=== PATIENT | female | born 1985 | race Caucasian/White ===

== ENCOUNTER 2017-08-11 07:21 | Day surgery (SDC) | payer OTHER ==
[~2017-08-11] VITALS: Ht 162.6 cm; Wt 129.9 kg
[~2017-08-11 07:21] MED LIST: ACET325 PO; ACID REFLUX MED; AMOX500 PO; ARIP10 PO; BCP'S; Buspirone HCl30 MG PO; CALCAVITD PO; CALCIUM/VIT D; CALGLU500; CETI5 PO; CHLO25B; CHOL10002 PO; CYCL10; CYCL10 PO; Cymbalta60 MG; DIPATR PO; DIPH25 PO; DIPH50; DOCU100; DOCU100 PO; ERGO400; ERGO400 PO; ESTNORT; FERR325; FERR325 PO; FEXPSEER PO; FLUO10; FLUO20; FLUO20 PO; Flonase 0.05% N16 GM; GABA300 PO; HALO5 PO; HYDACE25S PR; HYDACE5 PO; HYDPAM25 PO; HYDPAM50 PO; IBUP600 PO; IBUP800; IBUP800 PO; Imitrex50 MG; K-Tab10 MEQ; LEVFLO500 PO; LEVOXYL; LEVSOD100; LEVSOD112; LEVSOD112 PO; LEVSOD125; LEVSOD125 PO; LEVSOD150 PO; LEVSOD25; MEDR150I; MEDR150I IM; MELA3; MIRT15; MULVITA; MULVITMIND; MULVITMIND PO; NALT50; NALT50 PO; NAPR500 PO; OMEPRAZOLE MAGN20 MG PO; OXYACE5T PO; PARO10; PARO25; POLY17UD PO; PRAV20 PO; PRAZ2 PO; PRAZ5 PO; PROC5 PO; PROM25 PO; QUET100; QUET100 PO; QUET200; QUET25; QUET25 PO; QUET300; RANI150; RANI150 PO; RXCYCL10 PO; RXDIPHSY PO; RXHYDACE PO; RXOXYACE PO; SERT100 PO; SYNTHROID0.2 MG PO; Seroquel50 MG PO; Singulair10 MG; TRAZ100; TRAZ150T57; TRAZ50 PO; VENL150ER PO; VENL37.5ER PO; ZOLP10 PO; ZOLP5 PO; Zofran Odt4 MG SL; [UNRECOGNIZED DRUG - OTHER]; [UNRECOGNIZED DRUG - REMARK]
[2018-03-27] MEDS ORDERED: ZOLP10 PO (17:04)
[2018-03-27] MEDS ORDERED: VIIBRYD40 MG PO (17:04)
[2018-04-08] MEDS ORDERED: CLON.5 PO (20:58)
== END 2017-08-11 09:40 | disposition home or self-care (01) ==
LOC: ORSCSDS 07:21
PROVIDERS: Surgery
PROC: 0DJ08ZZ Inspection of Upper Intestinal Tract, Via Natural or Artificial Opening Endoscopic (ICD-10-PCS; principal; 2017-08-11 08:45)
DX: K21.9 Gastro-esophageal reflux disease without esophagitis (principal); R13.10 Dysphagia, unspecified; F32.9 Major depressive disorder, single episode, unspecified; E03.9 Hypothyroidism, unspecified; D64.9 Anemia, unspecified; E66.01 Morbid (severe) obesity due to excess calories; Z68.42 Body mass index [BMI] 45.0-49.9, adult; Z79.899 Other long term (current) drug therapy
CPT/HCPCS: J2250; J7120

== ENCOUNTER → 2017-08-31 | Outpatient (CLI) | payer OTHER ==
[~2017-08-31] MED LIST changes: +CLON.5 PO; +VIIBRYD40 MG PO
[2017-09-03 12:28] LABS: HPV Genotype 16 Not Detected (NOTDET); HPV Genotype 18 Not Detected (NOTDET)
[2017-09-05 13:01] LABS: HPV High Risk Other Not Detected (NOTDET)
== END ==
LOC: LAB 13:52
PROVIDERS: Registered Nurse Community Health
DX: Z12.4 Encounter for screening for malignant neoplasm of cervix (principal); R87.619 Unspecified abnormal cytological findings in specimens from cervix uteri
CPT/HCPCS: 87624; G0123

== ENCOUNTER → 2017-10-22 | Outpatient (CLI) | payer OTHER ==
[~2017-10-22] MED LIST changes: +Buspirone HCl30 MG; -Buspirone HCl30 MG PO; -CLON.5 PO; -VIIBRYD40 MG PO
== END | disposition home or self-care (01) ==
LOC: LAB EV 11:01 → LAB SHORT 11:01
DX: J02.9 Acute pharyngitis, unspecified (principal)
CPT/HCPCS: 87070

== ENCOUNTER → 2018-04-01 | Outpatient (CLI) | payer OTHER ==
[~2018-04-01] MED LIST changes: -Buspirone HCl30 MG; +Buspirone HCl30 MG PO; +VIIBRYD40 MG PO
== END | disposition home or self-care (01) ==
LOC: LAB EV 15:38 → LAB SHORT 15:38
DX: N39.0 Urinary tract infection, site not specified (principal)
CPT/HCPCS: 87086

== ENCOUNTER 2018-04-04 03:29 | Emergency (ER) | payer OTHER ==
[~2018-04-04] VITALS: Ht 162.6 cm; Wt 97.5 kg
[2018-04-04 04:43] LABS: BASOPHILS ABSOLUTE AUTO 0.02 K/mm3 (0.00-0.23); BASOPHILS PERCENT AUTO 0 % (0-2); EOSINOPHILS ABSOLUTE AUTO 0.13 K/mm3 (0.00-0.68); EOSINOPHILS PERCENT AUTO 2 % (0-6); Hemoglobin 12.5 g/dL (11.5-16.0); IMMATURE GRAN ABSOLUTE AUTO 0.01 K/mm3 (0.00-0.10); IMMATURE GRAN PERCENT AUTO 0 % (0-1); LYMPHOCYTES ABSOLUTE AUTO 1.76 K/mm3 (0.84-5.20); LYMPHOCYTES PERCENT AUTO 27 % (21-46); MONOCYTES PERCENT AUTO 9 % (4-13); Mean Corpuscular HGB 29.3 pg (26.0-34.0); Mean Corpuscular HGB Conc 32.9 g/dL (31.5-36.5); Mean Corpuscular Volume 89 fL (80-100); Mean Platelet Volume 10.8 fL (9.1-12.4); NEUTROPHILS ABSOLUTE AUTO 4.04 K/mm3 (1.96-9.15); NEUTROPHILS PERCENT AUTO 62 % (41-73); Platelet Count 159 K/mm3 (150-400); RDW Coefficient Variation 13.9 % (11.7-14.2); RDW Standard Deviation 44.7 fL (35.1-46.3); Red Blood Cell Count 4.26 M/mm3 (3.80-5.20); White Blood Cell Count 6.56 K/mm3 (4.00-11.30)
[2018-04-04 05:09] LABS: Alanine Aminotransfer (ALT/SGP 14 U/L (12-78); Albumin, Blood 2.6 g/dL (3.4-5.0); Albumin/Globulin Ratio 0.7 (0.8-1.8); Alk Phos 94 U/L (50-136); Anion Gap 9 mmol/L (6-16); Aspartate Aminotrans (AST/SGOT 13 U/L (12-37); Bilirubin, Total 0.5 mg/dL (0.1-1.0); Blood Urea Nitrogen 4 mg/dL (8-24); Bun/Creatinine Ratio 5.7 (12.0-20.0); CO2, Blood 26 mmol/L (21-32); Calcium, Blood 7.9 mg/dL (8.5-10.1); Chloride, Blood 110 mmol/L (98-108); Creatinine, Blood 0.71 mg/dL (0.40-1.00); Ethanol (Alcohol), Blood, Med <3 mg/dL; Globulin, Blood 3.8 g/dL (2.2-4.0); Glomerular Filtration Rate >60 (60-); Glucose, Blood 111 mg/dL (70-99); Sodium, Blood 145 mmol/L (136-145); Total Protein, Blood 6.4 g/dL (6.4-8.2)
[2018-04-04 05:15] LABS: Salicylate <1.7 mg/dL (2.8-20.0); Thyroid Stimulating Hormone 0.011 uIU/mL (0.360-4.800)
[2018-04-04 05:33] LABS: Acetaminophen, Random <2.0 ug/mL (10.0-30.0)
== END 2018-04-04 06:21 | disposition home or self-care (01) ==
LOC: ER 03:29
PROVIDERS: Emergency Medicine
DX: F32.9 Major depressive disorder, single episode, unspecified (principal); R44.0 Auditory hallucinations; F17.200 Nicotine dependence, unspecified, uncomplicated; Z88.1 Allergy status to other antibiotic agents; Z88.0 Allergy status to penicillin; Z91.048 Other nonmedicinal substance allergy status; Z91.018 Allergy to other foods; Z88.5 Allergy status to narcotic agent; Z88.8 Allergy status to other drugs, medicaments and biological substances; Z79.899 Other long term (current) drug therapy
CPT/HCPCS: 36415; 80053; 84443; 85025; 99284; G0480; Q3014

== ENCOUNTER → 2018-10-26 | Outpatient (CLI) | payer OTHER ==
[~2018-10-26] MED LIST changes: +CLON.5 PO
== END | disposition home or self-care (01) ==
LOC: LAB SHORT 10:49 → LAB EV 10:49
DX: M79.674 Pain in right toe(s) (principal)
CPT/HCPCS: 84550

== ENCOUNTER 2019-07-26 19:18 | Emergency (ER) | payer OTHER ==
[~2019-07-26] VITALS: Ht 162.6 cm; Wt 113.4 kg
[2019-07-26 20:01] LABS: BASOPHILS ABSOLUTE AUTO 0.06 K/mm3 (0.00-0.23); BASOPHILS PERCENT AUTO 1 % (0-2); EOSINOPHILS PERCENT AUTO 2 % (0-6); Hematocrit 42.3 % (33.0-51.0); Hemoglobin 13.6 g/dL (11.5-16.0); IMMATURE GRAN ABSOLUTE AUTO 0.02 K/mm3 (0.00-0.10); IMMATURE GRAN PERCENT AUTO 0 % (0-1); LYMPHOCYTES ABSOLUTE AUTO 2.62 K/mm3 (0.84-5.20); LYMPHOCYTES PERCENT AUTO 27 % (21-46); MONOCYTES ABSOLUTE AUTO 0.72 K/mm3 (0.16-1.47); MONOCYTES PERCENT AUTO 7 % (4-13); Mean Corpuscular HGB 29.1 pg (26.0-34.0); Mean Corpuscular HGB Conc 32.2 g/dL (31.5-36.5); Mean Corpuscular Volume 90 fL (80-100); Mean Platelet Volume 10.1 fL (9.1-12.4); NEUTROPHILS ABSOLUTE AUTO 6.13 K/mm3 (1.96-9.15); NEUTROPHILS PERCENT AUTO 63 % (41-73); Platelet Count 189 K/mm3 (150-400); RDW Coefficient Variation 13.8 % (11.7-14.2); RDW Standard Deviation 45.6 fL (35.1-46.3); Red Blood Cell Count 4.68 M/mm3 (3.80-5.20); White Blood Cell Count 9.75 K/mm3 (4.00-11.30)
[2019-07-26 20:29] LABS: Anion Gap 6 mmol/L (6-16); Blood Urea Nitrogen 6 mg/dL (8-24); Bun/Creatinine Ratio 8.2 (12.0-20.0); CO2, Blood 28 mmol/L (21-32); Calcium, Blood 8.6 mg/dL (8.5-10.1); Chloride, Blood 108 mmol/L (98-108); Creatinine, Blood 0.73 mg/dL (0.40-1.00); Glomerular Filtration Rate >60 (60-); Glucose, Blood 105 mg/dL (70-99); Potassium, Blood 3.2 mmol/L (3.5-5.5); Sodium, Blood 142 mmol/L (136-145)
== END 2019-07-26 21:19 | disposition home or self-care (01) ==
LOC: ER 19:18
PROVIDERS: Emergency Medicine
DX: T48.202A Poisoning by unspecified drugs acting on muscles, intentional self-harm, initial encounter (principal); F31.9 Bipolar disorder, unspecified; Z88.1 Allergy status to other antibiotic agents; Z88.8 Allergy status to other drugs, medicaments and biological substances; Z88.0 Allergy status to penicillin; Z88.5 Allergy status to narcotic agent; Z79.899 Other long term (current) drug therapy; K21.9 Gastro-esophageal reflux disease without esophagitis; F43.10 Post-traumatic stress disorder, unspecified; Z87.891 Personal history of nicotine dependence
CPT/HCPCS: 80048; 85025; 99283

== ENCOUNTER → 2019-10-19 | Outpatient (CLI) | payer OTHER | END | disposition home or self-care (01) | LOC: LAB 17:19 → LAB SHORT 17:19 | DX: J02.9 Acute pharyngitis, unspecified (principal) | CPT/HCPCS: 87081 ==

== ENCOUNTER 2020-01-04 14:53 | Emergency (ER) | payer OTHER ==
[~2020-01-04] VITALS: Ht 162.6 cm; Wt 133.8 kg
[2020-01-04 15:40] LABS: Source, Urine Clean Catch
[2020-01-04 15:52] LABS: BASOPHILS ABSOLUTE AUTO 0.08 K/mm3 (0.00-0.23); BASOPHILS PERCENT AUTO 1 % (0-2); EOSINOPHILS ABSOLUTE AUTO 0.22 K/mm3 (0.00-0.68); EOSINOPHILS PERCENT AUTO 2 % (0-6); Hematocrit 46.3 % (33.0-51.0); Hemoglobin 14.4 g/dL (11.5-16.0); IMMATURE GRAN ABSOLUTE AUTO 0.03 K/mm3 (0.00-0.10); IMMATURE GRAN PERCENT AUTO 0 % (0-1); LYMPHOCYTES ABSOLUTE AUTO 2.74 K/mm3 (0.84-5.20); LYMPHOCYTES PERCENT AUTO 25 % (21-46); MONOCYTES ABSOLUTE AUTO 0.71 K/mm3 (0.16-1.47); MONOCYTES PERCENT AUTO 7 % (4-13); Mean Corpuscular HGB Conc 31.1 g/dL (31.5-36.5); Mean Corpuscular Volume 87 fL (80-100); Mean Platelet Volume 10.8 fL (9.1-12.4); NEUTROPHILS ABSOLUTE AUTO 7.04 K/mm3 (1.96-9.15); NEUTROPHILS PERCENT AUTO 65 % (41-73); Platelet Count 209 K/mm3 (150-400); RDW Coefficient Variation 14.7 % (11.7-14.2); RDW Standard Deviation 47.3 fL (35.1-46.3); Red Blood Cell Count 5.34 M/mm3 (3.80-5.20); White Blood Cell Count 10.82 K/mm3 (4.00-11.30)
[2020-01-04 15:54] LABS: Appearance, Urine Clear (Clear); Color, Urine Yellow (P-Yellow)
[2020-01-04 15:55] LABS: Bilirubin, Urine Neg (Neg); Blood, Urine 1+ (Neg); Glucose Qualitative, Urine Neg (Neg); Ketones, Urine Neg (Neg); Leukocyte Esterase, Urine 1+ (Neg); Nitrite, Urine Neg (Neg); Protein, Urine Neg (Neg); Urobilinogen, Urine NORM (Normal)
[2020-01-04 16:02] LABS: Bacteria Mod /hpf; Red Blood Cells, Urine 0-2 /hpf (0-2); Squamous Epithelial Cells Few /hpf (Few)
[2020-01-04 16:04] LABS: Alanine Aminotransfer (ALT/SGP 21 U/L (12-78); Albumin, Blood 3.1 g/dL (3.4-5.0); Albumin/Globulin Ratio 0.8 (0.8-1.8); Alk Phos 120 U/L (50-136); Anion Gap 4 mmol/L (6-16); Aspartate Aminotrans (AST/SGOT 16 U/L (12-37); Bilirubin, Total 0.3 mg/dL (0.1-1.0); Blood Urea Nitrogen 8 mg/dL (8-24); Bun/Creatinine Ratio 10.1 (12.0-20.0); CO2, Blood 29 mmol/L (21-32); Calcium, Blood 8.2 mg/dL (8.5-10.1); Chloride, Blood 107 mmol/L (98-108); Ethanol (Alcohol), Blood, Med <3 mg/dL; Glomerular Filtration Rate >60 (60-); Glucose, Blood 107 mg/dL (70-99); Potassium, Blood 3.4 mmol/L (3.5-5.5); Salicylate 3.1 mg/dL (2.8-20.0); Sodium, Blood 140 mmol/L (136-145); Total Protein, Blood 7.1 g/dL (6.4-8.2)
[2020-01-04 16:11] LABS: Acetaminophen, Random <2.0 ug/mL (10.0-30.0)
[2020-01-04 16:15] LABS: U Amphetamine Screen Not Detected; U Barbituate Screen Not Detected; U Benzodiazapine Screen DETECTED; U Buprenorphine Screen Not Detected; U Cannabinoids Screen Not Detected; U Cocaine Screen Not Detected; U Methadone Screen Not Detected; U Methamphetamine Screen Not Detected; U Opiates Screen Not Detected; U Oxycodone Screen Not Detected; U Phencyclidine Screen Not Detected; U Propoxyphene Screen Not Detected
== END 2020-01-04 16:26 | disposition home or self-care (01) ==
LOC: ER 14:53
PROVIDERS: Physician Assistant
DX: F32.9 Major depressive disorder, single episode, unspecified (principal); K21.9 Gastro-esophageal reflux disease without esophagitis; F43.10 Post-traumatic stress disorder, unspecified; F20.9 Schizophrenia, unspecified; F17.200 Nicotine dependence, unspecified, uncomplicated; Z88.0 Allergy status to penicillin; Z88.5 Allergy status to narcotic agent; Z88.1 Allergy status to other antibiotic agents; Z88.8 Allergy status to other drugs, medicaments and biological substances; Z79.899 Other long term (current) drug therapy
CPT/HCPCS: 36415; 80053; 81001; 81025; 85025; 87086; 99285; G0480

== ENCOUNTER 2020-02-02 06:23 | Emergency (ER) | payer OTHER ==
[~2020-02-02] VITALS: Ht 162.6 cm; Wt 133.8 kg
[2020-02-02 06:57] LABS: Source, Urine Clean Catch
[2020-02-02] MEDS ORDERED: MONT4 (06:59)
[2020-02-02] MEDS ORDERED: ZIPRASIDONE HCL60 M1 PO (07:00)
[2020-02-02] MEDS ORDERED: OMEPRAZOLE DR 20 MG (07:00)
[2020-02-02 07:01] LABS: Bilirubin, Urine Neg (Neg); Blood, Urine Neg (Neg); Glucose Qualitative, Urine Neg (Neg); Ketones, Urine Neg (Neg); Leukocyte Esterase, Urine Neg (Neg); Nitrite, Urine Neg (Neg); Protein, Urine Neg (Neg); Specific Gravity, Urine 1.005 (1.003-1.022); Urobilinogen, Urine NORM (Normal)
[2020-02-02] MEDS ORDERED: PARO10 (07:01)
[2020-02-02] MEDS ORDERED: VITAMIN D325 MC3 (07:01)
[2020-02-02 07:10] LABS: Appearance, Urine Clear (Clear); Color, Urine Pale Yellow (P-Yellow)
[2020-02-02 07:11] LABS: BASOPHILS ABSOLUTE AUTO 0.05 K/mm3 (0.00-0.23); BASOPHILS PERCENT AUTO 1 % (0-2); EOSINOPHILS ABSOLUTE AUTO 0.16 K/mm3 (0.00-0.68); EOSINOPHILS PERCENT AUTO 2 % (0-6); Hematocrit 47.1 % (33.0-51.0); Hemoglobin 14.4 g/dL (11.5-16.0); IMMATURE GRAN ABSOLUTE AUTO 0.03 K/mm3 (0.00-0.10); IMMATURE GRAN PERCENT AUTO 0 % (0-1); LYMPHOCYTES ABSOLUTE AUTO 2.27 K/mm3 (0.84-5.20); LYMPHOCYTES PERCENT AUTO 25 % (21-46); MONOCYTES ABSOLUTE AUTO 0.55 K/mm3 (0.16-1.47); MONOCYTES PERCENT AUTO 6 % (4-13); Mean Corpuscular HGB Conc 30.6 g/dL (31.5-36.5); Mean Corpuscular Volume 88 fL (80-100); Mean Platelet Volume 10.9 fL (9.1-12.4); NEUTROPHILS ABSOLUTE AUTO 5.97 K/mm3 (1.96-9.15); NEUTROPHILS PERCENT AUTO 66 % (41-73); Platelet Count 159 K/mm3 (150-400); RDW Coefficient Variation 14.8 % (11.7-14.2); RDW Standard Deviation 47.7 fL (35.1-46.3); Red Blood Cell Count 5.34 M/mm3 (3.80-5.20); White Blood Cell Count 9.03 K/mm3 (4.00-11.30)
[2020-02-02 07:30] LABS: Alanine Aminotransfer (ALT/SGP 14 U/L (12-78); Albumin, Blood 3.1 g/dL (3.4-5.0); Albumin/Globulin Ratio 0.8 (0.8-1.8); Alk Phos 129 U/L (50-136); Anion Gap 8 mmol/L (6-16); Aspartate Aminotrans (AST/SGOT 8 U/L (12-37); Bilirubin, Total 0.4 mg/dL (0.1-1.0); Blood Urea Nitrogen 6 mg/dL (8-24); Bun/Creatinine Ratio 8.2 (12.0-20.0); CO2, Blood 23 mmol/L (21-32); Calcium, Blood 8.3 mg/dL (8.5-10.1); Chloride, Blood 106 mmol/L (98-108); Creatinine, Blood 0.73 mg/dL (0.40-1.00); Glomerular Filtration Rate >60 (60-); Glucose, Blood 98 mg/dL (70-99); Potassium, Blood 3.7 mmol/L (3.5-5.5); Sodium, Blood 137 mmol/L (136-145); Total Protein, Blood 7.1 g/dL (6.4-8.2)
== END 2020-02-02 08:32 | disposition home or self-care (01) ==
LOC: ER 06:23
PROVIDERS: Emergency Medicine
DX: M79.89 Other specified soft tissue disorders (principal); R11.0 Nausea; F31.9 Bipolar disorder, unspecified; K21.9 Gastro-esophageal reflux disease without esophagitis; F43.10 Post-traumatic stress disorder, unspecified; F41.9 Anxiety disorder, unspecified; F20.9 Schizophrenia, unspecified; J44.9 Chronic obstructive pulmonary disease, unspecified; Z88.0 Allergy status to penicillin; Z88.1 Allergy status to other antibiotic agents; Z88.5 Allergy status to narcotic agent; Z88.8 Allergy status to other drugs, medicaments and biological substances; Z79.899 Other long term (current) drug therapy; Z87.891 Personal history of nicotine dependence
CPT/HCPCS: 36415; 80053; 81003; 83690; 85025; 99284

== ENCOUNTER → 2020-06-06 | Outpatient (CLI) | payer OTHER ==
[~2020-06-06] MED LIST changes: +MONT4; +OMEPRAZOLE DR 20 MG; +VITAMIN D325 MC3; +ZIPRASIDONE HCL60 M1 PO
[2020-06-08 13:37] LABS: CORONAVIRUS (COVID19) CSH-NRL Negative (Negative)
== END | disposition home or self-care (01) ==
LOC: LAB 12:36 → LAB SHORT 12:36
PROVIDERS: Physician Assistant Surgical
DX: J22 Unspecified acute lower respiratory infection (principal); Z20.828 Contact with and (suspected) exposure to other viral communicable diseases
CPT/HCPCS: U0003

== ENCOUNTER → 2021-05-01 | Outpatient (CLI) | payer OTHER ==
[2021-05-01 13:52] LABS: Appearance, Urine Hazy (Clear); Bilirubin, Urine Neg (Neg); Blood, Urine 5+ (Neg); Color, Urine Yellow (P-Yellow); Glucose Qualitative, Urine Neg (Neg); Ketones, Urine Neg (Neg); Leukocyte Esterase, Urine 3+ (Neg); Nitrite, Urine Neg (Neg); Protein, Urine 3+ (Neg); Urobilinogen, Urine NORM (Normal)
[2021-05-01 14:37] LABS: Bacteria Many /hpf; Red Blood Cells, Urine 25-50 /hpf (0-2); Squamous Epithelial Cells Few /hpf (Few); White Blood Cells, Urine 50-100 /hpf (0-5)
== END | disposition home or self-care (01) ==
LOC: LAB 11:00 → LAB SHORT 11:00
PROVIDERS: Nurse Practitioner Family
DX: R30.0 Dysuria (principal)
CPT/HCPCS: 81001; 87077; 87086; 87186

== ENCOUNTER → 2021-12-13 | Outpatient (CLI) | payer OTHER | END | disposition home or self-care (01) | LOC: LAB SHORT 11:46 → LAB 11:46 | DX: N39.0 Urinary tract infection, site not specified (principal) | CPT/HCPCS: 87086 ==

== ENCOUNTER → 2022-05-21 | Outpatient (CLI) | payer OTHER ==
[2022-05-22 16:08] LABS: HPV 16 Negative (Negative); HPV 18 Negative (Negative); HPV OTHER HR TYPES Negative (Negative)
== END ==
LOC: RAD SHORT 12:46 → LAB 12:46 → RAD SHORT 12:47 → MOI RAD 12:47
PROVIDERS: Registered Nurse Community Health
DX: Z12.4 Encounter for screening for malignant neoplasm of cervix (principal); B37.2 Candidiasis of skin and nail; Z01.419 Encounter for gynecological examination (general) (routine) without abnormal findings
CPT/HCPCS: 83036; 87624; G0123

== ENCOUNTER 2023-02-27 10:50 | Inpatient (IN) | payer OTHER ==
[~2023-02-27] VITALS: Ht 162.6 cm; Wt 121.9 kg
[2023-02-27 11:47] LABS: BASOPHILS ABSOLUTE AUTO 0.04 K/mm3 (0.00-0.23); BASOPHILS PERCENT AUTO 0 % (0-2); EOSINOPHILS ABSOLUTE AUTO 0.33 K/mm3 (0.00-0.68); EOSINOPHILS PERCENT AUTO 3 % (0-6); Hematocrit 38.6 % (33.0-51.0); Hemoglobin 12.1 g/dL (11.5-16.0); IMMATURE GRAN ABSOLUTE AUTO 0.06 K/mm3 (0.00-0.10); IMMATURE GRAN PERCENT AUTO 1 % (0-1); LYMPHOCYTES PERCENT AUTO 12 % (21-46); MONOCYTES ABSOLUTE AUTO 0.43 K/mm3 (0.16-1.47); MONOCYTES PERCENT AUTO 4 % (4-13); Mean Corpuscular HGB 29.3 pg (26.0-34.0); Mean Corpuscular HGB Conc 31.3 g/dL (31.5-36.5); Mean Corpuscular Volume 94 fL (80-100); Mean Platelet Volume 10.1 fL (9.1-12.4); NEUTROPHILS PERCENT AUTO 80 % (41-73); Platelet Count 210 K/mm3 (150-400); RDW Coefficient Variation 15.8 % (11.7-14.2); RDW Standard Deviation 53.9 fL (35.1-46.3); Red Blood Cell Count 4.13 M/mm3 (3.80-5.20); White Blood Cell Count 11.26 K/mm3 (4.00-11.30)
[2023-02-27 12:00] LABS: Albumin, Blood 2.4 g/dL (3.4-5.0); Albumin/Globulin Ratio 0.6 (0.8-1.8); Bilirubin, Total 0.2 mg/dL (0.1-1.0); Bun/Creatinine Ratio 8.2 (12.0-20.0); Calcium, Blood 7.6 mg/dL (8.5-10.1); Creatinine, Blood 0.61 mg/dL (0.40-1.00); Globulin, Blood 4.3 g/dL (2.2-4.0); Magnesium, Blood 1.7 mg/dL (1.6-2.4); Potassium, Blood 3.2 mmol/L (3.5-5.5); Total Protein, Blood 6.7 g/dL (6.4-8.2)
[2023-02-27] MEDS ORDERED: MELATONIN 5 MG1 EACH PO ×2 (14:55)
[2023-02-27] MEDS ORDERED: Ventolin/Proventil INH ×2 (14:56)
[2023-02-27] MEDS ORDERED: CELE200 PO ×2 (14:57)
[2023-02-27] MEDS ORDERED: Synthroid/Levothroid PO ×2 (14:59)
[2023-02-27] MEDS ORDERED: ESTARYLLA PO ×2 (15:00)
[2023-02-27] MEDS ORDERED: OLANZAPINE20 M1 PO ×2 (15:01)
[2023-02-27] MEDS ORDERED: OMEP20ER PO ×2 (15:02)
[2023-02-27] MEDS ORDERED: PARO20 PO ×2 (15:03)
[2023-02-27] MEDS ORDERED: SEROQUEL XR50 MG PO ×2 (15:04)
[2023-02-27] MEDS ORDERED: VITAMIN D PO ×2 (15:06)
[2023-02-27 15:37] LABS: Influenza A, PCR NEGATIVE (NEGATIVE); Influenza B, PCR NEGATIVE (NEGATIVE); Resp Syncytial Virus, PCR NEGATIVE (NEGATIVE); SARS-Cov-2 (COVID-19) PCR, MMC NEGATIVE (NEGATIVE)
[2023-02-27 15:51] VITALS: BP 146/84
--- NOTE | 2023-02-27 19:31 | NUR ---
ADMISSION NOTE: PATIENT ARRIVED IN ROOM AT AROUND 1545 FROM ER FOR DX OF ACUTE ASTHMA EXACERBATION. PATIENT A&OX4. PLEASANT AND COOPERATIVE c CARE. ON 2L OF O2 VIA [place] c SPO2 OF 91-97%. NON PRODUCTIVE COUGH. LUNGS COARSE AND TIGHT T/O TO AUSCULTATION. MEDRIC AND 2 RN SKIN ASSESSMENT DONE. NOTED SKIN EXCORIATION TO L UNDER BREAST, PANNUS AND GROIN AREA. PATIENT AMBUL[place] [facility] [place] SBA AND FWW. EATING AND DRINKING WELL WITHOUT ANY DIFFICULTIES. RECEIVED SCHEDULED MEDS PER EMAR. VITAL SIGNS REVIEWED. PIV TO L HAND SALINE LOCKED. BED ALARM ON FOR SAFETY. CALL LIGHT IN REACH. PATIENT EDUCATED ON NON SMOKING POLICY, RISK OF INJURY, AND IGNITION SOURCES WHEN O2 IS IN USE. PATIENT DENIES SMOKING AND STATED UNDERSTANDING.
[2023-02-27 20:36] VITALS: BP 155/88
--- NOTE | 2023-02-28 05:14 | NUR ---
SUMMARY- NO ACUTE EVENTS THIS SHIFT. PT AAOX4 AND X1 ASSIST TO THE BSC. PAIN WELL CONTROLLED W/PAIN MEDS. PT UP TO THE BSC JUST ABOUT EVERY 1 HR TO URINATE THIS SHIFT. PT DENIES ANY BURNING OR ITCHING IN JENNIFER AREA. PT STATES IT IS "NORMAL" FOR HER TO URINATE EVERY HOUR AT HOME.
[2023-02-28 05:17] LABS: Hematocrit 38.2 % (33.0-51.0); Hemoglobin 11.9 g/dL (11.5-16.0); Mean Corpuscular HGB 29.3 pg (26.0-34.0); Mean Corpuscular HGB Conc 31.2 g/dL (31.5-36.5); Mean Corpuscular Volume 94 fL (80-100); Mean Platelet Volume 9.6 fL (9.1-12.4); Platelet Count 210 K/mm3 (150-400); RDW Coefficient Variation 15.4 % (11.7-14.2); RDW Standard Deviation 53.9 fL (35.1-46.3); Red Blood Cell Count 4.06 M/mm3 (3.80-5.20); White Blood Cell Count 10.64 K/mm3 (4.00-11.30)
[2023-02-28 05:18] VITALS: BP 156/89
[2023-02-28 06:05] LABS: Bun/Creatinine Ratio 6.3 (12.0-20.0); Calcium, Blood 8.2 mg/dL (8.5-10.1); Creatinine, Blood 0.63 mg/dL (0.40-1.00); Potassium, Blood 3.2 mmol/L (3.5-5.5)
[2023-02-28 07:46] VITALS: BP 152/89
[2023-02-28 16:00] VITALS: BP 151/73
--- NOTE | 2023-02-28 18:36 | NUR ---
SHIFT SUMMARY: NO NEW ACUTE CHANGES IN PATIENT CONDITION THIS SHIFT. PATIENT A&OX4. PLEASANT AND COOPERATIVE c CARE AND USES CALL LIGHT APPRORPIATELY. AT BEGINNING OF SHIFT PATIENT WAS ON 2L OF O2 VIA [place] c SPO2 RANGES 92-94%. AT AROUND 1000 O2 TITRATED TO 1L VIA [place] c SPO2 RANGES 90-93% T/O SHIFT. ENCOURAGE PT TO DO BREATHING EXERCISE AND PROVIDED c PICKLE DEVICE WHEN AWAKE. PATIENT HAS BEEN USING IT T/O SHIFT. RECEIVED OT DOSE OF 20 MG IV LASIX AND 60 MEQ OF K PO. LUNGS STILL COARSE AND WHEEZY T/O TO AUSCULATTION. PATIENT IS CONTINENCE OF URINE AND USES BS c SBA AND FWW. EATING AND DRINKING WELL. PAIN TO R HIP WELL CONTROLLED c PAIN MEDS PER EMAR AND REPOSITIONING. RECEIVED SCHEDULED MEDS PER EMAR. VITAL SIGNS REVIEWED. BED ALARM ON FOR SAFETY. CALL LIGHT IN REACH. PATIENT EDUCATED ON NON SMOKING POLICY, RISK OF INJURY, AND IGNITION SOURCES WHEN O2 IS IN USE. PATIENT DENIES SMOKING AND VERBALIZED UNDERSTANDING.
[2023-02-28 19:57] VITALS: BP 153/92
[2023-03-01 03:27] VITALS: BP 158/88
[2023-03-01 05:12] LABS: Bun/Creatinine Ratio 12.9 (12.0-20.0); Calcium, Blood 8.4 mg/dL (8.5-10.1); Creatinine, Blood 0.7 mg/dL (0.40-1.00); Magnesium, Blood 1.8 mg/dL (1.6-2.4); Potassium, Blood 3.7 mmol/L (3.5-5.5)
--- NOTE | 2023-03-01 05:34 | NUR ---
SUMMARY- NO ACUTE EVENTS OR CHANGES OVERNIGHT. PT IS ON 2 L O2.
[2023-03-01 07:55] VITALS: BP 140/94
[2023-03-01 10:07] VITALS: BP 129/99
--- NOTE | 2023-03-01 16:12 | NUR ---
SHIFT SUMMARY: NO NEW ACUTE CHANGES IN PATIENT CONDITION THIS SHIFT. ON 1L OF O2 VIA [place] c SPO2 RANGES 94-95%. HOME O2 EVAL WAS DONE TODAY, PER RT c AMBULATION PATIENT NEEDED 2L OF O2 TO GO HOME. THIS RN CONCERN c PATIENT SAFETY AT HOME D/T HEAVY CIGARETTE CONSUMPTION. PER PATIENT SHE SMOKES 1 PACK TO 1 1/2 PACK OF CIGARETTES A DAY. PATIENT IS MILD DEVELOPMENTAL DELAY, HX OF SCHIZOPPHRINIA, BIPOLAR DISORDER, AND BORDERLINE PERSONALITY DISORDER. 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 THIS RN EDUCATED THE PATIENT REGARDING HOME O2 USE, AND SHE COULD NOT SMOKE CIGARETTE. PATIENT VERBALIZED UNDERSTANDING, AND STATED "I WILL TRY MY BEST TO QUIT." OFFERED NICOTINE PATCH, BUT PATIENT DECLINED. PATIENT RECEIVED SCHEDULED MEDS PER EMAR. PAIN TO R KNEE WELL MANAGE c PAIN MEDS PER EMAR AND REPOSITIONING. VITAL SIGNS REVIEWED. BED ALARM ON FOR SAFETY. CALL LIGHT IN REACH. PATIENT EDUCATED ON NON SMOKING POLICY, RISK OF INJURY, IGNITION SOURCES WHEN O2 IS IN USE. PATIENT DENIES SMOKING AND VERBALIZED UNDERSTANDING.
[2023-03-01 17:37] VITALS: BP 138/88
[2023-03-01 21:50] VITALS: BP 160/88
--- NOTE | 2023-03-02 05:35 | NUR ---
SUMMARY: PT A/OX3-4 AND IS PLEASANT AND COOPERATIVE W/CARE. SHE HAS MILD DEVELOPMENTAL DELAY BUT SEEMS AWARE OF LIMITATIONS AND SPECIFIES NEEDS. SHE'S UP TO BSC INDEPENDENTLY W/FWW AND REQ'S SBA FOR DISTANCE. PT VOIDS OFTEN D/T URINARY URGENCY. SHE REMAINS ON 1L O2 AND REQ'S 2L W/AMBULATION PER HOME O2 EVAL. STAFF PROVIDED FURTHER EDUCATION RE: INABILITY TO SMOKE WHILE USING O2. SHE EXPRESSED UNDERSTANDING SAYING "I'M NOT GONNA SMOKE ANYMORE" BUT SEE PREVIOUS RN'S SUMMARY FOR MORE DETAILED CONCERNS. SPUTUM COLLECTION PENDING D/T CONFIGURATION MANAGEMENT MANAGER COUGH. SHE RECEIVED TYLENOL FOR TOLERABLE RELIEF OF R.HIP PAIN FROM FALL PRIOR TO ADMIT. NO ACUTE CHANGES, VSS/AFEBRILE. POSSIBLE D/C THIS AM. WCTM AND REPORT TO DAY RN.
[2023-03-02 08:15] VITALS: BP 163/103
[2023-03-02 15:27] VITALS: BP 165/93
--- NOTE | 2023-03-02 18:04 | NUR ---
PTK UP SOME TODAY. DOES REQUEST FOOD MANY TIMES DURING DAY. DID DISCUSS GETTING HER SODA DRINKS CUT BACK WAS DRINGING SO MUCH SODA SO FAST SHE THREW UP. STATES DOES SAME WITH SNACK FOOD. DISCUSSED HAVING HER SLOW DOWN. PLACE LIMITS LIKE 1-2 IN AM AND 1-2 IN PM. THEN DRINK WATER. DID MEDICATE FOR PAIN FOR LEG TODAY X1. DISCUSSED HER NOT SMOKING. SHE STATES PATCH MAKES HER SKIN RED, SO JUST GOINIG TO QUIT. EXPLAINED DANGER OF SMOKING AND O2. [place], EXPLOSIONS. SHE FEELS STOPPING SMOKING MIGHT BE BEST OPTION. NO OTHER CONCERNS NOTED. BED IN LOW POSITION, CALL LITE IN REACH, CALLS APPROP
[2023-03-03 05:35] VITALS: BP 168/107
[2023-03-03 05:36] LABS: Base Excess Venous 12.6 mmol/L; Bicarbonate Venous 35.1 mmol/L (24.0-30.0); PCO2 Venous 43.1 mmHg (38-42); pH Blood Venous 7.52 (7.34-7.37)
--- NOTE | 2023-03-03 06:11 | NUR ---
SUMMARY: PT A/OX3-4, IS PLEASANT AND COOPERATIVE W/CARE AND HAS MILD DEVELOPMENTAL DELAY BUT SPECIFIES NEEDS. SHE USES BSC INDEPENDENTLY W/FWW AND CONT'S TO HAVE URINARY URGENCY. SHE REMAINS ON 1L O2 W/SPO2 WNL AND HOME O2 RECCOMMENDS 2L W/AMBULATION. STAFF FURTHER REITTERRATED SMOKING RISK WHILE ON O2 AND NICORETTE GUM AVAILABLE PRN. SPUTUM COLLECTION STILL PENDING D/T DENTAL NURSE COUGH. TYLENOL RECIEVED FOR TOLERABLE RELIEF OF BILAT HIP PAIN. BP ELEVATED THIS AM BUT PT ANXIOUS R/T PAIN. NO ACUTE CHANGES, VSS/AFEBRILE. POSSIBLE D/C TODAY. WCTM AND REPORT TO DAY RN.
[2023-03-03] MEDS ORDERED: ALBU90OI INH ×2 (13:20)
[2023-03-03] MEDS ORDERED: IPRAT-ALBUT 0.5-3 ML INH ×2 (13:21)
[2023-03-03] MEDS ORDERED: EUTHYROX175 MCG PO ×2 (13:21)
[2023-03-03] MEDS ORDERED: VITAMIN D5000 UNIT PO ×2 (13:22)
[2023-03-03] MEDS ORDERED: NICO2 PO ×2 (13:22)
[2023-03-03] MEDS ORDERED: PRED20 PO ×2 (13:23)
--- NOTE | 2023-03-03 16:35 | NUR ---
PT DISCHARGED HOME. DC INSTRUCTIONS AND EDUCATION MATERIAL EXPLAINED TO PT. NO NEW QUESTIONS OR CONCERNS. [facility] DELIVERED PORTABLE OXYGEN TO PT WITH INSTRUCTIONS ON USE. PT EDUCATED ON DANGERS OF SMOKING AROUND OXYGEN. PERSCRIPTIONS FAXED TO REQUESTED PHARMACY. PERSONAL BELONGINGS IN LOCKED DRAWER AND LOCKED CLOSET RETURNED TO PT, INCLUDING HOME CONTROL MEDICATIONS. PT HELPED TO GATHER BELONGINGS. PT TAKEN BY WHEELCHAIR TO WAITING TAXI VEHICLE.
[2023-03-04] MEDS ORDERED: ALBU2.5V5 NEB (09:37)
== END 2023-03-03 15:40 | disposition home or self-care (01) | DRG 189 ==
LOC: ER 10:50 → MEDS 10:51 → ENPENDDIS 03-03 13:51 → MEDS 03-03 15:40
PROVIDERS: Internal Medicine; Student in an Organized Health Care Education/Training Program; ADMIT Internal Medicine
DX: J96.01 Acute respiratory failure with hypoxia (principal); J44.1 Chronic obstructive pulmonary disease with (acute) exacerbation; Z68.42 Body mass index [BMI] 45.0-49.9, adult; F32.A Depression, unspecified; F43.10 Post-traumatic stress disorder, unspecified; K21.9 Gastro-esophageal reflux disease without esophagitis; Z20.822 Contact with and (suspected) exposure to COVID-19; F41.9 Anxiety disorder, unspecified; E66.9 Obesity, unspecified; F20.9 Schizophrenia, unspecified; G89.29 Other chronic pain; M54.9 Dorsalgia, unspecified; E78.00 Pure hypercholesterolemia, unspecified; G47.00 Insomnia, unspecified; B37.2 Candidiasis of skin and nail; E87.6 Hypokalemia; F79 Unspecified intellectual disabilities; M25.551 Pain in right hip; E03.9 Hypothyroidism, unspecified; R79.89 Other specified abnormal findings of blood chemistry; F17.210 Nicotine dependence, cigarettes, uncomplicated; W18.39XA Other fall on same level, initial encounter; Z88.1 Allergy status to other antibiotic agents; Z88.0 Allergy status to penicillin; Z91.09 Other allergy status, other than to drugs and biological substances; Z91.018 Allergy to other foods; Z88.5 Allergy status to narcotic agent; Z88.8 Allergy status to other drugs, medicaments and biological substances; Z79.899 Other long term (current) drug therapy; Z79.890 Hormone replacement therapy; Z90.49 Acquired absence of other specified parts of digestive tract; Z98.890 Other specified postprocedural states; Z87.730 Personal history of (corrected) cleft lip and palate; Z87.74 Personal history of (corrected) congenital malformations of heart and circulatory system; Z90.11 Acquired absence of right breast and nipple; Z90.722 Acquired absence of ovaries, bilateral; Z99.81 Dependence on supplemental oxygen; Z71.6 Tobacco abuse counseling
CPT/HCPCS: 0241U; 36415; 71045; 80048; 80053; 82803; 83735; 83880; 84145; 85025; 85027; 93005; 93010; 94640; 94644; 94664; 94760; 94761; 96365; 96367; 96372; 96375; 96376; 97110; 97116; 97162; 99285-25; 99407; A9270; G0378; J0456; J1650; J1885; J1940; J2930; J3010; J3475; J7030; J7050; J7512

== ENCOUNTER 2023-03-04 08:10 | Emergency (ER) | payer OTHER ==
[~2023-03-04] VITALS: Ht 162.6 cm; Wt 121.6 kg
[~2023-03-04 08:10] MED LIST changes: +ALBU90OI INH; +CELE200 PO; +ESTARYLLA PO; +EUTHYROX175 MCG PO; +IPRAT-ALBUT 0.5-3 ML INH; +MELATONIN 5 MG1 EACH PO; +NICO2 PO; +OLANZAPINE20 M1 PO; +OMEP20ER PO; +PARO20 PO; +PRED20 PO; +SEROQUEL XR50 MG PO; +Synthroid/Levothroid PO; +VITAMIN D PO; +VITAMIN D5000 UNIT PO; +Ventolin/Proventil INH
[2023-03-04] MEDS ORDERED: ALBU2.5V5 NEB (09:37)
[2023-03-04 11:21] LABS: Source, Urine Straight Cath
[2023-03-04 11:30] LABS: Appearance, Urine Clear (Clear); Bilirubin, Urine Neg (Neg); Blood, Urine Neg (Neg); Color, Urine Yellow (P-Yellow); Glucose Qualitative, Urine Neg (Neg); Ketones, Urine Neg (Neg); Leukocyte Esterase, Urine Neg (Neg); Nitrite, Urine Neg (Neg); Protein, Urine Neg (Neg); Specific Gravity, Urine 1.015 (1.003-1.022); Urobilinogen, Urine NORM (Normal)
[2023-03-04 14:00] VITALS: BP 147/75
== END 2023-03-04 14:45 | disposition home or self-care (01) ==
LOC: ER 08:10
PROVIDERS: Emergency Medicine
DX: J45.909 Unspecified asthma, uncomplicated (principal); M79.10 Myalgia, unspecified site; F17.210 Nicotine dependence, cigarettes, uncomplicated; Z88.0 Allergy status to penicillin; Z88.5 Allergy status to narcotic agent; Z88.1 Allergy status to other antibiotic agents; Z79.899 Other long term (current) drug therapy; Z79.52 Long term (current) use of systemic steroids
CPT/HCPCS: 51701; 81003; 94640; 94664; 99284-25; A9270

== ENCOUNTER 2023-03-05 02:02 | Emergency (ER) | payer OTHER ==
[~2023-03-05] VITALS: Ht 162.6 cm; Wt 120.2 kg
[~2023-03-05 02:02] MED LIST changes: +ALBU2.5V5 NEB
[2023-03-05 02:36] LABS: BASOPHILS ABSOLUTE AUTO 0.04 K/mm3 (0.00-0.23); BASOPHILS PERCENT AUTO 0 % (0-2); EOSINOPHILS ABSOLUTE AUTO 0.14 K/mm3 (0.00-0.68); EOSINOPHILS PERCENT AUTO 1 % (0-6); Hemoglobin 13.6 g/dL (11.5-16.0); IMMATURE GRAN PERCENT AUTO 1 % (0-1); LYMPHOCYTES ABSOLUTE AUTO 1.98 K/mm3 (0.84-5.20); LYMPHOCYTES PERCENT AUTO 11 % (21-46); MONOCYTES ABSOLUTE AUTO 1.31 K/mm3 (0.16-1.47); MONOCYTES PERCENT AUTO 7 % (4-13); Mean Corpuscular HGB 29.2 pg (26.0-34.0); Mean Corpuscular HGB Conc 32.4 g/dL (31.5-36.5); Mean Corpuscular Volume 90 fL (80-100); NEUTROPHILS ABSOLUTE AUTO 15.09 K/mm3 (1.96-9.15); NEUTROPHILS PERCENT AUTO 80 % (41-73); Platelet Count 183 K/mm3 (150-400); RDW Coefficient Variation 15.6 % (11.7-14.2); RDW Standard Deviation 50.4 fL (35.1-46.3); Red Blood Cell Count 4.66 M/mm3 (3.80-5.20); White Blood Cell Count 18.76 K/mm3 (4.00-11.30)
[2023-03-05 02:56] LABS: Ethanol (Alcohol), Blood, Med 4 mg/dL; Salicylate 1.8 mg/dL (2.8-20.0)
[2023-03-05 02:57] LABS: Acetaminophen, Random <2.0 ug/mL (10.0-30.0); Alanine Aminotransfer (ALT/SGP 15 U/L (12-78); Albumin, Blood 2.7 g/dL (3.4-5.0); Albumin/Globulin Ratio 0.7 (0.8-1.8); Alk Phos 142 U/L (50-136); Anion Gap 5 mmol/L (6-16); Aspartate Aminotrans (AST/SGOT 14 U/L (12-37); Bilirubin, Total 0.7 mg/dL (0.1-1.0); Blood Urea Nitrogen 10 mg/dL (8-24); Bun/Creatinine Ratio 16.8 (12.0-20.0); CO2, Blood 31 mmol/L (21-32); Chloride, Blood 105 mmol/L (98-108); Creatinine, Blood 0.59 mg/dL (0.40-1.00); Globulin, Blood 3.9 g/dL (2.2-4.0); Glomerular Filtration Rate 118 (60-); Glucose, Blood 112 mg/dL (70-99); Potassium, Blood 3.6 mmol/L (3.5-5.5); Sodium, Blood 141 mmol/L (136-145); Total Protein, Blood 6.6 g/dL (6.4-8.2)
[2023-03-05 20:46] VITALS: BP 130/90
== END 2023-03-06 10:57 | disposition home or self-care (01) ==
LOC: ER 02:02
PROVIDERS: Emergency Medicine
DX: R45.851 Suicidal ideations (principal); F17.210 Nicotine dependence, cigarettes, uncomplicated; K21.9 Gastro-esophageal reflux disease without esophagitis; J44.9 Chronic obstructive pulmonary disease, unspecified; Z79.51 Long term (current) use of inhaled steroids; Z79.890 Hormone replacement therapy; Z79.899 Other long term (current) drug therapy; Z88.0 Allergy status to penicillin; Z88.1 Allergy status to other antibiotic agents; Z88.5 Allergy status to narcotic agent; Z88.8 Allergy status to other drugs, medicaments and biological substances
CPT/HCPCS: 80053; 84436; 84443; 85025; 99284; A9270; G0480

== ENCOUNTER 2023-03-06 12:49 | Emergency (ER) | payer OTHER ==
[~2023-03-06] VITALS: Ht 162.6 cm; Wt 121.6 kg
[2023-03-06 13:52] VITALS: BP 162/97
[2023-04-12] MEDS ORDERED: PROM12.5S PR (14:01)
[2023-04-12] MEDS ORDERED: PROMETHAZINE12.5 M1 PO (14:01)
[2023-04-12] MEDS ORDERED: ONDA4ODT MM (14:01)
[2023-04-12] MEDS ORDERED: LIDO700A20 TOP (14:02)
[2023-04-12] MEDS ORDERED: FAMO20 PO (14:02)
== END 2023-03-06 15:47 | disposition home or self-care (01) ==
LOC: ER 12:49
DX: Z76.5 Malingerer [conscious simulation] (principal); J44.9 Chronic obstructive pulmonary disease, unspecified; F17.200 Nicotine dependence, unspecified, uncomplicated; Z88.0 Allergy status to penicillin; Z88.5 Allergy status to narcotic agent; Z88.1 Allergy status to other antibiotic agents; Z91.048 Other nonmedicinal substance allergy status; Z88.8 Allergy status to other drugs, medicaments and biological substances; Z79.899 Other long term (current) drug therapy; W18.49XA Other slipping, tripping and stumbling without falling, initial encounter
CPT/HCPCS: 99283

== ENCOUNTER 2023-03-17 10:52 | Emergency (ER) | payer OTHER ==
[~2023-03-17] VITALS: Ht 162.6 cm; Wt 121.6 kg
[2023-03-17 13:44] LABS: BASOPHILS ABSOLUTE AUTO 0.03 K/mm3 (0.00-0.23); BASOPHILS PERCENT AUTO 0 % (0-2); EOSINOPHILS ABSOLUTE AUTO 0.06 K/mm3 (0.00-0.68); EOSINOPHILS PERCENT AUTO 1 % (0-6); Hematocrit 40.7 % (33.0-51.0); Hemoglobin 13.4 g/dL (11.5-16.0); IMMATURE GRAN ABSOLUTE AUTO 0.03 K/mm3 (0.00-0.10); IMMATURE GRAN PERCENT AUTO 0 % (0-1); LYMPHOCYTES ABSOLUTE AUTO 1.65 K/mm3 (0.84-5.20); LYMPHOCYTES PERCENT AUTO 15 % (21-46); MONOCYTES ABSOLUTE AUTO 0.59 K/mm3 (0.16-1.47); MONOCYTES PERCENT AUTO 5 % (4-13); Mean Corpuscular HGB 29.5 pg (26.0-34.0); Mean Corpuscular HGB Conc 32.9 g/dL (31.5-36.5); Mean Corpuscular Volume 90 fL (80-100); Mean Platelet Volume 10.5 fL (9.1-12.4); NEUTROPHILS ABSOLUTE AUTO 8.63 K/mm3 (1.96-9.15); NEUTROPHILS PERCENT AUTO 79 % (41-73); Platelet Count 205 K/mm3 (150-400); RDW Coefficient Variation 17.6 % (11.7-14.2); RDW Standard Deviation 54.9 fL (35.1-46.3); Red Blood Cell Count 4.55 M/mm3 (3.80-5.20); White Blood Cell Count 10.99 K/mm3 (4.00-11.30)
[2023-03-17 14:22] LABS: Albumin, Blood 2.9 g/dL (3.4-5.0); Albumin/Globulin Ratio 0.8 (0.8-1.8); Bilirubin, Direct 0.4 mg/dL (0.0-0.3); Bilirubin, Indirect 0.6 mg/dL (0.1-0.7); Bun/Creatinine Ratio 11.6 (12.0-20.0); Calcium, Blood 8.6 mg/dL (8.5-10.1); Creatinine, Blood 0.69 mg/dL (0.40-1.00); Globulin, Blood 3.6 g/dL (2.2-4.0); Potassium, Blood 3.4 mmol/L (3.5-5.5); Total Protein, Blood 6.5 g/dL (6.4-8.2)
[2023-03-17] MEDS ORDERED: FAMO20 PO (14:36)
[2023-03-17] MEDS ORDERED: Almacone Liqui355 ML PO (14:36)
[2023-03-17] MEDS ORDERED: ONDA4ODT MM (14:36)
[2023-03-17 15:00] VITALS: BP 121/77
== END 2023-03-17 17:00 | disposition home or self-care (01) ==
LOC: ER 10:52
PROVIDERS: Student in an Organized Health Care Education/Training Program
DX: R11.2 Nausea with vomiting, unspecified (principal); R19.7 Diarrhea, unspecified; M25.551 Pain in right hip; Z88.1 Allergy status to other antibiotic agents; Z88.0 Allergy status to penicillin; Z88.5 Allergy status to narcotic agent; Z88.8 Allergy status to other drugs, medicaments and biological substances; Z79.899 Other long term (current) drug therapy; K21.9 Gastro-esophageal reflux disease without esophagitis; F43.10 Post-traumatic stress disorder, unspecified; J44.9 Chronic obstructive pulmonary disease, unspecified; E66.01 Morbid (severe) obesity due to excess calories; F17.210 Nicotine dependence, cigarettes, uncomplicated
CPT/HCPCS: 73502; 80048; 80076; 83690; 85025; 96361; 96374; 96375; 97112; 97162; 99284-25; A9270; J1790; J1885; J7030

== ENCOUNTER → 2023-04-20 | Outpatient (CLI) | payer OTHER ==
[~2023-04-20] MED LIST changes: +Almacone Liqui355 ML PO; +FAMO20 PO; +LIDO700A20 TOP; +ONDA4ODT MM; +PROM12.5S PR; +PROMETHAZINE12.5 M1 PO
[2023-04-20 15:16] LABS: Source, Urine Clean Catch
[2023-04-20 15:31] LABS: Appearance, Urine Clear (Clear); Bilirubin, Urine 1+ (Neg); Blood, Urine 1+ (Neg); Color, Urine Yellow (P-Yellow); Glucose Qualitative, Urine NORM (Normal); Ketones, Urine Neg (Neg); Leukocyte Esterase, Urine Neg (Neg); Nitrite, Urine Neg (Neg); Protein, Urine Neg (Neg); Specific Gravity, Urine 1.005 (1.003-1.022); Urobilinogen, Urine 2+ (Normal)
[2023-04-20 15:44] LABS: Bacteria Few /hpf; Red Blood Cells, Urine 0-2 /hpf (0-2); Squamous Epithelial Cells Not Seen /hpf (Few); White Blood Cells, Urine 0-2 /hpf (0-5)
== END | disposition home or self-care (01) ==
LOC: LAB 13:00 → LAB SHORT 13:00
PROVIDERS: Family Medicine
DX: R33.9 Retention of urine, unspecified (principal)
CPT/HCPCS: 81001

== ENCOUNTER 2023-04-21 23:41 | Emergency (ER) | payer OTHER ==
[~2023-04-21] VITALS: Ht 162.6 cm; Wt 88.5 kg
[2023-04-21 23:45] VITALS: BP 132/68
[2023-04-22 04:20] LABS: BASOPHILS ABSOLUTE AUTO 0.04 K/mm3 (0.00-0.23); BASOPHILS PERCENT AUTO 0 % (0-2); EOSINOPHILS ABSOLUTE AUTO 0.04 K/mm3 (0.00-0.68); EOSINOPHILS PERCENT AUTO 0 % (0-6); Hemoglobin 11.8 g/dL (11.5-16.0); IMMATURE GRAN ABSOLUTE AUTO 0.13 K/mm3 (0.00-0.10); IMMATURE GRAN PERCENT AUTO 1 % (0-1); LYMPHOCYTES ABSOLUTE AUTO 2.81 K/mm3 (0.84-5.20); LYMPHOCYTES PERCENT AUTO 25 % (21-46); MONOCYTES PERCENT AUTO 5 % (4-13); Mean Corpuscular HGB 29.9 pg (26.0-34.0); Mean Corpuscular HGB Conc 32.8 g/dL (31.5-36.5); Mean Corpuscular Volume 91 fL (80-100); Mean Platelet Volume 10.9 fL (9.1-12.4); NEUTROPHILS ABSOLUTE AUTO 7.48 K/mm3 (1.96-9.15); NEUTROPHILS PERCENT AUTO 67 % (41-73); Platelet Count 138 K/mm3 (150-400); RDW Coefficient Variation 18.2 % (11.7-14.2); RDW Standard Deviation 60.5 fL (35.1-46.3); Red Blood Cell Count 3.94 M/mm3 (3.80-5.20)
[2023-04-22 04:39] LABS: Albumin, Blood 2.5 g/dL (3.4-5.0); Albumin/Globulin Ratio 0.6 (0.8-1.8); Bilirubin, Total 0.6 mg/dL (0.1-1.0); Bun/Creatinine Ratio 12.9 (12.0-20.0); Calcium, Blood 8.3 mg/dL (8.5-10.1); Creatinine, Blood 0.7 mg/dL (0.40-1.00); Globulin, Blood 4.4 g/dL (2.2-4.0); Potassium, Blood 3.5 mmol/L (3.5-5.5); Total Protein, Blood 6.9 g/dL (6.4-8.2)
== END 2023-04-22 06:03 | disposition home or self-care (01) ==
LOC: ER 23:41
PROVIDERS: Emergency Medicine
DX: F41.9 Anxiety disorder, unspecified (principal); F17.210 Nicotine dependence, cigarettes, uncomplicated; Z88.0 Allergy status to penicillin; Z88.1 Allergy status to other antibiotic agents; Z88.6 Allergy status to analgesic agent; Z88.8 Allergy status to other drugs, medicaments and biological substances; Z91.018 Allergy to other foods; Z79.899 Other long term (current) drug therapy; Z79.52 Long term (current) use of systemic steroids; Z79.890 Hormone replacement therapy
CPT/HCPCS: 36415; 71046; 80053; 84484; 85025; 99284-25; A9270

== ENCOUNTER 2023-04-26 05:24 | Emergency (ER) | payer OTHER ==
[~2023-04-26] VITALS: Ht 162.6 cm; Wt 121.6 kg
[2023-04-26 06:00] VITALS: BP 118/63
[2023-04-26] MEDS ORDERED: SULTRIDS PO (07:29)
== END 2023-04-26 07:45 | disposition home or self-care (01) ==
LOC: ER 05:24
DX: F41.9 Anxiety disorder, unspecified (principal); Z88.1 Allergy status to other antibiotic agents; Z88.0 Allergy status to penicillin; Z88.5 Allergy status to narcotic agent; Z91.048 Other nonmedicinal substance allergy status; Z79.899 Other long term (current) drug therapy; K21.9 Gastro-esophageal reflux disease without esophagitis; F43.10 Post-traumatic stress disorder, unspecified; E66.01 Morbid (severe) obesity due to excess calories; J44.9 Chronic obstructive pulmonary disease, unspecified; Z87.891 Personal history of nicotine dependence
CPT/HCPCS: 71046; 93005; 93010; 94640; 94664; 99284-25; A9270

== ENCOUNTER 2023-04-27 00:35 | Emergency (ER) | payer OTHER ==
[~2023-04-27] VITALS: Ht 162.6 cm; Wt 121.6 kg
[~2023-04-27 00:35] MED LIST changes: +SULTRIDS PO
[2023-04-27 00:41] VITALS: BP 121/74
[2023-04-27 03:21] LABS: BASOPHILS ABSOLUTE AUTO 0.03 K/mm3 (0.00-0.23); BASOPHILS PERCENT AUTO 0 % (0-2); EOSINOPHILS ABSOLUTE AUTO 0.03 K/mm3 (0.00-0.68); EOSINOPHILS PERCENT AUTO 0 % (0-6); Hematocrit 31.6 % (33.0-51.0); Hemoglobin 10.7 g/dL (11.5-16.0); IMMATURE GRAN ABSOLUTE AUTO 0.09 K/mm3 (0.00-0.10); IMMATURE GRAN PERCENT AUTO 1 % (0-1); LYMPHOCYTES ABSOLUTE AUTO 2.55 K/mm3 (0.84-5.20); LYMPHOCYTES PERCENT AUTO 25 % (21-46); MONOCYTES ABSOLUTE AUTO 0.54 K/mm3 (0.16-1.47); MONOCYTES PERCENT AUTO 5 % (4-13); Mean Corpuscular HGB 30.3 pg (26.0-34.0); Mean Corpuscular HGB Conc 33.9 g/dL (31.5-36.5); Mean Corpuscular Volume 90 fL (80-100); Mean Platelet Volume 10.9 fL (9.1-12.4); NEUTROPHILS ABSOLUTE AUTO 7.16 K/mm3 (1.96-9.15); NEUTROPHILS PERCENT AUTO 69 % (41-73); Platelet Count 163 K/mm3 (150-400); RDW Coefficient Variation 18.3 % (11.7-14.2); RDW Standard Deviation 59.6 fL (35.1-46.3); Red Blood Cell Count 3.53 M/mm3 (3.80-5.20)
[2023-04-27 03:48] LABS: Ethanol (Alcohol), Blood, Med <3 mg/dL; Salicylate <1.7 mg/dL (2.8-20.0)
[2023-04-27 04:00] LABS: U Amphetamine Screen Not Detected; U Barbituate Screen Not Detected; U Benzodiazapine Screen Not Detected; U Buprenorphine Screen Not Detected; U Cannabinoids Screen Not Detected; U Cocaine Screen Not Detected; U Methadone Screen Not Detected; U Methamphetamine Screen Not Detected; U Opiates Screen Not Detected; U Oxycodone Screen Not Detected; U Phencyclidine Screen Not Detected; U Propoxyphene Screen Not Detected
[2023-04-27 04:19] LABS: Acetaminophen, Random <2.0 ug/mL (10.0-30.0); Alanine Aminotransfer (ALT/SGP 15 U/L (12-78); Albumin, Blood 2.3 g/dL (3.4-5.0); Albumin/Globulin Ratio 0.5 (0.8-1.8); Alk Phos 181 U/L (50-136); Anion Gap 9 mmol/L (6-16); Aspartate Aminotrans (AST/SGOT 13 U/L (12-37); Bilirubin, Total 0.4 mg/dL (0.1-1.0); Blood Urea Nitrogen 6 mg/dL (8-24); Bun/Creatinine Ratio 9.8 (12.0-20.0); CO2, Blood 25 mmol/L (21-32); Calcium, Blood 8.1 mg/dL (8.5-10.1); Chloride, Blood 105 mmol/L (98-108); Creatinine, Blood 0.61 mg/dL (0.40-1.00); Globulin, Blood 4.4 g/dL (2.2-4.0); Glomerular Filtration Rate 117 (60-); Glucose, Blood 119 mg/dL (70-99); Potassium, Blood 3.1 mmol/L (3.5-5.5); Sodium, Blood 139 mmol/L (136-145); Total Protein, Blood 6.7 g/dL (6.4-8.2)
== END 2023-04-27 05:26 | disposition home or self-care (01) ==
LOC: ER 00:35
PROVIDERS: Student in an Organized Health Care Education/Training Program
DX: F41.9 Anxiety disorder, unspecified (principal); Z88.0 Allergy status to penicillin; Z88.1 Allergy status to other antibiotic agents; Z88.5 Allergy status to narcotic agent; Z79.899 Other long term (current) drug therapy; K21.9 Gastro-esophageal reflux disease without esophagitis; F43.10 Post-traumatic stress disorder, unspecified; J45.909 Unspecified asthma, uncomplicated; E66.01 Morbid (severe) obesity due to excess calories; Z87.891 Personal history of nicotine dependence
CPT/HCPCS: 80053; 81025; 85025; 93005; 93010; 99284-25; A9270; G0480

== ENCOUNTER 2023-05-06 13:41 | Emergency (ER) | payer OTHER ==
[~2023-05-06] VITALS: Ht 162.6 cm; Wt 90.7 kg
[2023-05-06] MEDS ORDERED: TIZA4 PO (16:59)
[2023-05-06] MEDS ORDERED: ACET500 PO (16:59)
[2023-05-06] MEDS ORDERED: MELATONIN5 M1 PO (16:59)
[2023-05-07 11:45] VITALS: BP 159/88
== END 2023-05-07 17:11 ==
LOC: ER 13:41
DX: M25.551 Pain in right hip (principal); R29.6 Repeated falls; Z88.0 Allergy status to penicillin; Z88.1 Allergy status to other antibiotic agents; Z88.6 Allergy status to analgesic agent; Z88.8 Allergy status to other drugs, medicaments and biological substances; Z91.048 Other nonmedicinal substance allergy status; Z79.899 Other long term (current) drug therapy; Z79.890 Hormone replacement therapy; Z79.52 Long term (current) use of systemic steroids; Z87.891 Personal history of nicotine dependence
CPT/HCPCS: 73502; 97162; 97530; 99285-25